=== PATIENT | female | born 1970 | race Caucasian/White ===

== ENCOUNTER 2024-02-29 10:12 | Outpatient (CLI) | payer BC ==
[2024-02-29 11:46] LABS: #Basophils 0.07 10x3/uL (0.0-0.2); #Eosinphils 0.25 10x3/uL (0.0-0.5); #Monocytes 0.53 10x3/uL (0.0-1.1); #Neutrophils 3.54 10x3/uL (1.5-8.4); %Basophils 0.9 % (0.0-2.0); %Eosinophils 3.1 % (0.0-6.0); %Lymphocytes 45.5 % (18.0-47.0); %Monocytes 6.6 % (0.0-10.0); %Neutrophils 43.7 % (40.0-75.0); Hematocrit 39.4 % (34.9-44.5); Hemoglobin 13.7 g/dL (12.0-15.5); Mean Corpuscular HGB CONC 34.8 g/dL (32.0-36.0); Mean Corpuscular Hemoglobin 31.1 pg (27.0-33.0); Mean Corpuscular Volume 89.5 fL (81.6-98.3); Mean Platelet Volume 11.3 fL (7.4-10.4); Platelet Count 225 10x3/uL (150-450); RBC Distribution Width 12.8 % (11.5-14.5); White Blood Cell (WBC) Count 8.1 10x3/uL (3.5-10.5)
[2024-02-29 12:33] LABS: Anion Gap 13 mmol/L (10-20); BUN (Urea Nitrogen) 16 mg/dL (9.8-20.1); Calc. Creatinine Clearance 0 mL/min (70-130); Calcium 9.3 mg/dL (7.8-10.44); Carbon Dioxide 23 mmol/L (22-29); Chloride 107 mmol/L (98-107); Estimated GFR 63; Glucose 92 mg/dL (70-105); Potassium 4.2 mmol/L (3.5-5.1); Sodium 139 mmol/L (136-145)
== END 2024-02-29 10:13 | disposition home or self-care (01) ==
LOC: CSHLAB 10:12
PROVIDERS: ATTEND Specialist
DX: Z01.812 Encounter for preprocedural laboratory examination (principal); C50.911 Malignant neoplasm of unspecified site of right female breast
CPT/HCPCS: 80048; 85025

== ENCOUNTER → 2024-03-05 | Day surgery (SDC) | payer BC ==
[2024-02-29 10:46] VITALS: BMI 28.6
[~2024-03-05] MED LIST: Acetaminophen 500 MG TAB ONE; Bupivacaine/Epinephrine 0.25% 30 ML VIAL ONE; CEFAZOLIN 2 GM VIAL ONE; Dexamethasone 4 mg/ml Vial ONE; Isosulfan Blue 50 MG/5 ML VIAL ONE; Ketorolac Tromethamine 30 MG (1 mL) VIAL ONE; Lidocaine 2% MPF 10 ML AMP (For Epidural Use) ONE; Midazolam HCl 2 mg/2 ml Vial ONE; Ondansetron PF 4 MG/2 ML Vial ONE; PHENYLEPHRINE-NS 100 MCG/ML 10 ML SYRINGE ONE; PROPOFOL 20 ML ONE; fentaNYL 50 mcg/mL 1 mL Vial ONE
== END ==
LOC: CSHSDC 07:22
PROVIDERS: ATTEND Specialist
PROC: 07T50ZZ Resection of Right Axillary Lymphatic, Open Approach (ICD-10-PCS; principal; 2024-03-05)
PROC: 0HBT0ZZ Excision of Right Breast, Open Approach (ICD-10-PCS; principal; 2024-03-05)
DX: C50.211 Malignant neoplasm of upper-inner quadrant of right female breast (principal); N60.11 Diffuse cystic mastopathy of right breast; N60.91 Unspecified benign mammary dysplasia of right breast; N60.81 Other benign mammary dysplasias of right breast; F41.9 Anxiety disorder, unspecified; E07.9 Disorder of thyroid, unspecified; Z79.899 Other long term (current) drug therapy; Z98.890 Other specified postprocedural states; Z91.040 Latex allergy status; Z88.8 Allergy status to other drugs, medicaments and biological substances
CPT/HCPCS: 76098; 78195; 88307; A9541; C1713; J1100; J1885; J2250; J2405; J2704; J3010; Q9968